=== PATIENT | female | born 1970 | race Caucasian/White ===

== ENCOUNTER 2018-08-03 13:45 | Emergency (ER) | payer OTHER ==
[~2018-08-03] VITALS: Ht 162.6 cm; Wt 77.2 kg
[2018-08-03] MEDS ORDERED: NAPR-996 PO (15:30)
[2018-08-03] MEDS ORDERED: CYCL-1 PO (15:30)
[2018-08-03 15:45] VITALS: BP 129/84
== END 2018-08-03 16:17 | disposition home or self-care (01) ==
LOC: ER 13:46
DX: M54.2 Cervicalgia (principal); R51 Headache; R42 Dizziness and giddiness; R55 Syncope and collapse; V47.5XXA Car driver injured in collision with fixed or stationary object in traffic accident, initial encounter; Y93.89 Activity, other specified; Y92.488 Other paved roadways as the place of occurrence of the external cause; Y99.8 Other external cause status
CPT/HCPCS: 71045; 72040; 99283